=== PATIENT | male | born 1960 | race African-American/Black ===

== ENCOUNTER 2025-02-05 06:23 | Day surgery (SDC) | payer OTHER, SELFPAY | END 2025-02-05 08:45 | disposition home or self-care (01) | LOC: GI 06:23 | PROVIDERS: ATTENDING PHYSICIAN Internal Medicine Gastroenterology | DX: Z12.11 Encounter for screening for malignant neoplasm of colon (principal); D12.0 Benign neoplasm of cecum; K64.8 Other hemorrhoids; Z80.0 Family history of malignant neoplasm of digestive organs | CPT/HCPCS: 45380; 88305 ==